=== PATIENT | female | born 1980 | race Caucasian/White ===

== ENCOUNTER 2024-12-04 21:10 | Emergency (ER) | payer OTHER, SELFPAY ==
[2024-12-04 21:13] VITALS: BP 130/82
--- NOTE | 2024-12-04 21:50 | ED.GENMED ---
History of Present Illness
General
Chief Complaint: Abdominal Symptoms
Source: patient
Exam Limitations: none
Time Seen by Provider: 12/04/24 21:41
History of Present Illness
History of Present Illness:
44-year-old female presents with fatigue myalgias low-grade fever congestion and now vomiting. Her son has been sick with influenza A for 4 days. She started with congestion overnight and she spoke with her doctor through telehealth today and
advised her to start Tamiflu. Patient did test herself at home for COVID and flu which was negative however shortly after taking the Tamiflu she started vomiting. Since then she has not been able to keep anything down. She denies diarrhea. She
notes diffuse abdominal discomfort. No chest pain. She is healthy otherwise. No other complaints
Past History
Past History
ED Past Medical History: Other (Bilateral mastectomies with implants)
Social History
Tobacco: Non-smoker
Alcohol: Occasional
Family History
Family History: Other (BRACA mutations)
Phy Exam
Physical Exam
Physical Exam:
General: Well-developed female no acute respiratory distress
HEENT: Normocephalic mucosa dry neck is supple
Heart: Regular rate and rhythm lungs: Clear no wheeze
Abdomen is soft nontender nondistended no guarding or rebound
Extremities: No cyanosis or edema
Sepsis
Sepsis Screening
Sepsis Assessment: Sepsis Ruled Out
Sepsis Screen
Sepsis Screen: Sepsis Ruled Out
Date: 12/05/24
Time: 00:22
Course
Orders/Labs/Results
Orders:
Orders
12/04/24 21:49
0.9% Sodium Chloride 1000 ml [Nss] 1,000 ml IV BOLUS
Ondansetron Injectable [Zofran] 4 mg IV NOW STA
12/04/24 21:50
Test Result ONCE
12/04/24 22:25
Complete Blood Count/With Diff Urgent
Comprehensive Metabolic Panel Urgent
HCG, Serum Qualitative Screen Urgent
Lipase Urgent
12/04/24 23:41
Acetaminophen [Tylenol] 650 mg PO NOW STA
12/05/24 00:18
Ondansetron Injectable [Zofran] 4 mg IV NOW STA
Abnormal Lab Results
12/04/24
22:25
WBC 4.5 L 10^3/uL
(4.8-10.8)
Hct 36.0 L %
(37.0-47.0)
MCH 31.4 H pg
(27.0-31.0)
MPV 11.8 H fL
(7.4-10.4)
Absolute Lymphs (auto) 0.3 L 10^3/uL
(1.2-3.4)
Neutrophils % 82.9 H %
(42.2-75.2)
Lymphocytes % 5.9 L %
(20.5-51.1)
Monocytes % 10.6 H %
(1.7-9.3)
Sodium 130 L mmol/L
(135-145)
Chloride 97 L mmol/L
(98-107)
Glucose 111 H mg/dl
(70-99)
12/04/24 22:25
12/04/24 22:25
Vital Signs
Initial and Last Documented VS:
Initial Vital Signs
Temp Pulse Resp BP Pulse Ox
98.9 F 106 20 130/82 98
12/04/24 21:13 12/04/24 21:13 12/04/24 21:13 12/04/24 21:13 12/04/24 21:13
Last Documented Vital Signs
Temp Pulse Resp BP Pulse Ox
98.9 F 95 22 115/75 94
12/04/24 21:13 12/04/24 23:15 12/04/24 23:15 12/04/24 23:00 12/04/24 23:15
MDM/Problems Addressed
Differential Diagnosis Includes:
Patient with vomiting and flulike symptoms. Concern for electrolyte abnormality dehydration or viral illness. Also etiology of vomiting could be from recent initiation of Tamiflu. Check labs. Fluids ordered Zofran ordered. Considered imaging of
abdomen however not indicated given benign exam
*Critical Care Note
Total Time (30-74mins, 75-104mins- exclusive of procedures): Not Applicable
Update Note
Update Note:
Patient feeling improved headache improved after fluids. Nausea still present but pain is improved. 1 more dose of Zofran ordered. Patient expresses her desire to go home. I suspect vomiting more likely related to recent initiation of Tamiflu.
She was advised to stop Tamiflu
ED Attending Note
-
Portions of this chart may have been created with voice recognition software.� Occasional wrong word or��sound alike� substitutions may have occurred due to the inherent limitations of voice recognition software.
Discharge Plan
Departure
Patient Disposition: Home (Routine Discharge)
Date of Disposition: 12/05/24
Time of Disposition: 00:20
Patient with high blood pressure during this ER visit?: No
Discharge Problem:
Vomiting
Instructions: Nausea and Vomiting, Adult (DC)
Prescriptions:
New
ondansetron 4 mg tablet,disintegrating
4 mg PO Q8H PRN (Reason: nausea and vomiting) Qty: 10 0RF
Referrals:
Mariaelena Noguera MD [Family Provider] -
Activity Restrictions/Additional Instructions:
Stop Tamiflu. Use Zofran if needed for nausea. Drink plenty clear liquids. Use Tylenol or ibuprofen if needed for fever or headache. Return if worse otherwise
Interventions
Interventions:
*Risk Screen - Suicide Last Done: 12/04/24 21:13
*General Assessment Last Done: 12/04/24 22:01
*Neglect/Abuse Screening Last Done: 12/04/24 21:13
ED- Fall Risk Assessment Last Done: 12/04/24 22:01
*ED COVID-19 Vaccine History Last Done: 12/04/24 22:01
SI-Ihkkhz-Sedsnftgao Assessment Last Done: 12/04/24 22:01
ED- Pulmonary Assessment Last Done: 12/04/24 22:01
Discharge Date and Time
Print Language: KAZAKH
[2024-12-04 22:01] VITALS: BMI 26.6
[2024-12-04 22:04] VITALS: BP 125/71
[2024-12-04] MEDS: ZOFRAN 4 MG IV (22:19)
[2024-12-04] MEDS: NSS 1000 IV (22:21)
[2024-12-04 22:41] LABS: HCG, Serum Qualitative Screen Negative
[2024-12-04 22:42] LABS: % Basophils 0.2 % (0-2); % Eosinophils 0.2 % (0-6); % Immature Granulocytes 0.2 % (0-0.5); % Lymphocytes 5.9 % (20.5-51.1); % Monocytes 10.6 % (1.7-9.3); % Neutrophils 82.9 % (42.2-75.2); Absolute Lymphocytes 0.3 10^3/uL (1.2-3.4); Absolute Monocytes 0.5 10^3/uL (0.1-0.6); Absolute Neutrophils 3.8 10^3/uL (1.4-6.5); Hemoglobin 13.3 g/dL (12.0-16.0); Mean Corp Hgb Conc. 36.9 g/dL (33.0-37.0); Mean Corpuscular Hgb 31.4 pg (27.0-31.0); Mean Corpuscular Volume 84.9 fL (81.0-99.0); Mean Platelet Volume 11.8 fL (7.4-10.4); Nucleated Red Blood Cells % 0 %; Platelet Count 140 10^3/uL (130-400); Red Blood Cell Count 4.24 10^6/uL (4.20-5.40); Red Cell Dist. Width 12.8 % (11.5-14.5); White Blood Cell Count 4.5 10^3/uL (4.8-10.8)
[2024-12-04 22:46] LABS: ALT (SGPT) 32 U/L (0-35); AST (SGOT) 29 U/L (14-36); Albumin 4.5 g/dl (3.5-5.0); Alkaline Phosphatase 68 U/L (38-126); Blood Urea Nitrogen 13 mg/dl (7-17); Calcium 9.6 mg/dl (8.4-10.2); Carbon Dioxide 26 mmol/L (22-30); Chloride 97 mmol/L (98-107); Estimated Creatinine Clearance 101 ml/min; Glucose 111 mg/dl (70-99); Lipase 42 U/L (23-300); Potassium 3.7 mmol/L (3.5-5.1); Sodium 130 mmol/L (135-145); Total Bilirubin 0.8 mg/dl (0.2-1.3); Total Protein 7.1 g/dl (6.3-8.2); eGFR > 60.00
[2024-12-04 23:00] VITALS: BP 115/75
[2024-12-04] MEDS: TYLENOL 650 MG PO (23:46)
[2024-12-05] VITALS: BP 118/68
[2024-12-05] MEDS: ZOFRAN 4 MG IV (00:26)
== END 2024-12-05 00:42 | disposition home or self-care (01) ==
LOC: EMR 21:10
PROVIDERS: Physician Assistant; EMERGENCY PHYSICIAN Emergency Medicine; FAMILY PHYSICIAN Student in an Organized Health Care Education/Training Program
DX: R11.2 Nausea with vomiting, unspecified (principal); R51.9 Headache, unspecified; R10.9 Unspecified abdominal pain; Z86.16 Personal history of COVID-19
CPT/HCPCS: 99284; 96374; 96361; 96376; 80053; 83690; 84703; 85025